=== PATIENT | male | born 1940 | race Two or more races ===

== ENCOUNTER 2019-11-06 06:00 | Day surgery (SDC) | payer OTHER ==
[~2019-11-06 06:00] MED LIST: CIPRO500 MG/5 M PO; GLIMEPIRIDE2 MG; TAMS0.4C PO; ZOCOR20 MG PO
== END 2019-11-06 11:41 | disposition home or self-care (01) ==
LOC: CIR.AMB 06:00
PROVIDERS: ATTEND Urology
DX: C67.0 Malignant neoplasm of trigone of bladder (principal); C67.1 Malignant neoplasm of dome of bladder